=== PATIENT | male | born 1950 | race Caucasian/White ===

== ENCOUNTER 2017-08-09 13:08 | Observation (INO) | payer MEDICARE, OTHER, SELFPAY ==
[2017-08-09] MEDS: HYDROMORPHONE 0.5 MG INJ 1 MG IV (13:09)
--- NOTE | 2017-08-09 13:10 | ED.BACK ---
HPI - Back Pain/Injury General Chief Complaint: Back Pain/Injury Stated Complaint: Back pain Time Seen by Provider: 08/09/17 13:10 Source: patient, family and EMS Mode of arrival: EMS History of Present Illness HPI Narrative: 67-year-old male with history of AFib on Coumadin, hypertension, and hyperlipidemia presents with significant lumbar pain and inability to ambulate since Wednesday. He has been laying flat all weekend. He denies any significant injury and was ambulatory up until Wednesday afternoon. He denies any new numbness or tingling but admits to some persistent numbness in his left leg from prior episodes of sciatica. He denies any trouble with bowel or bladder control. He denies weakness in his legs and states that the pain is so excruciating he cannot stand up. He came to the emergency department by airlift from Bonita Maxwell MD Complaint: back pain Onset (ago): day(s) Duration: constant Similar Symptoms Previously: Yes Location: lumbar spine Severity: severe Quality: burning, sharp and stabbing Radiation: none Relieving factors: immobilization Exacerbating factors: sitting upright and walking Context: unknown Associated symptoms: denies other symptoms Related Data Home Medications Medication Instructions Recorded Confirmed losartan 50 mg PO DAILY 08/09/17 08/09/17 propranolol 40 mg PO BID 08/09/17 08/09/17 simvastatin 40 mg PO QPM 08/09/17 08/09/17 warfarin [Coumadin] 0.5 - 1 tab PO DAILY 08/09/17 08/09/17 Allergies Allergy/AdvReac Type Severity Reaction Status Date / Time No Known Drug Allergies Allergy Verified 08/09/17 13:28 Review of Systems Review of Systems All systems reviewed & are unremarkable except as noted in HPI and below Constitutional Denies chills, Denies fever(s), Denies lethargy and Denies weakness Eyes Denies change in vision, Denies eye discharge, Denies irritation and Denies loss of vision ENT Ears, Nose, Mouth, and Throat: Denies change in voice, Denies neck pain and Denies sore throat Cardiovascular Denies chest pain, Denies irregular heart rhythm, Denies lightheadedness, Denies palpitations, Denies dyspnea, Denies dyspnea on exertion and Denies orthopnea Respiratory Denies cough, Denies dyspnea, Denies dyspnea on exertion and Denies wheezing Gastrointestinal Gastrointestinal: Denies abdominal pain, Denies change in bowel habits, Denies diarrhea, Denies nausea and Denies vomiting Genitourinary Denies hematuria, Denies flank pain, Denies urinary incontinence and Denies urinary urgency Musculoskeletal Reports back pain and Denies neck pain Integumentary/Breasts Denies pruritus, Denies erythema, Denies rash and Denies wounds Neurologic Denies confusion, Denies loss of vision and Denies weakness Psychiatric Denies anxiety, Denies confusion, Denies depression, Denies homicidal ideation and Denies suicidal ideation Endocrine Denies palpitations Hematologic/Lymphatic Denies easy bruising Allergic/Immunologic Denies wheezing PFSH Medical History Atrial fibrillation (Acute) HTN (hypertension) (Acute) Hyperlipidemia (Acute) Social History Smoking Status: Former smoker Exam Narrative Exam Narrative: Pleasant 67-year-old male excruciating pain Initial Vital Signs Initial Vital Signs: Vital Signs Temperature 100.1 F H 08/09/17 13:18 Pulse Rate 73 08/09/17 13:18 Respiratory Rate 18 08/09/17 13:18 Blood Pressure 156/90 H 08/09/17 13:18 Pulse Oximetry 96 08/09/17 13:18 Const General: cooperative, well developed and acute distress Nutritional Appearance: well nourished Orientation: alert, awake, oriented x3 and not confused HENMT Head: normocephalic and atraumatic Ears: external ears normal and TM's normal bilaterally Nose: external nose normal and No nasal discharge Face and sinus: sinuses nontender, face symmetric, no sinus tenderness and No dry mucous membranes Mouth: oral mucosae normal and moist mucous membranes Teeth and gingiva: dentition normal Throat: tonsils normal and uvula midline Neck Neck: normal visual inspection, trachea midline, No lymphadenopathy, No midline deformity and No JVD Lymphatic: No lymphedema Chest Chest: normal inspection of the chest Cardio Rate: regular rate Rhythm: abnormal rhythm GI Inspection: non-distended Palpation: soft, no hepatosplenomegaly, No guarding, No pulsatile mass and No tender Auscultation: normal bowel sounds Back/Spine/Pelvis Back: back tenderness Cervical Spine: cervical ROM normal and No pain with cervical ROM Thoracic/Lumbar Spine: No surgical scar(s) present, thoraco-lumbar ROM limited, thoraco-lumbar spasm and lumbar spinal tenderness Skin General: no rashes or lesions noted, No jaundice and No petechiae Neuro General: alert, awake, oriented x3 and no focal motor deficits Speech: speech normal Motor: muscle tone normal throughout and strength 5/5 throughout Sensory Exam: no sensory deficits noted Extrem General: full ROM, no clubbing, cyanosis or edema, no pedal edema and no calf tenderness Course Orders Ordered: ED Orders 08/09/17 13:55 Basic Metabolic Panel Stat C-Reactive Protein Quant Stat Complete Blood Count AUTO DIFF Stat Erythrocyte Sedimentation Rate Stat Lactate (Lactic Acid) Stat Procalcitonin Stat Prothrombin Time INR Stat Troponin with CK Cardiac Panel Stat 08/09/17 14:04 Blood Culture Stat 08/09/17 14:37 MR lumbar spine wo/w con Stat Discontinued Medications Hydromorphone HCl (Dilaudid) 1 mg IV NOW ONE Stop: 08/09/17 13:29 Last Admin: 08/09/17 13:09 Dose: 1 mg Dexamethasone 20 mg/ Sodium (Chloride) 52 mls @ 208 mls/hr IV NOW ONE Stop: 08/09/17 18:38 Last Infusion: 08/09/17 19:35 Dose: 0 mls/hr Admin: 08/09/17 19:14 Dose: 208 mls/hr Lorazepam (Ativan) 1 mg IV NOW ONE Stop: 08/09/17 15:09 Last Admin: 08/09/17 15:15 Dose: 1 mg Consultations Consultation #1: Dr. Hawkins (ortho) has reviewed MRI and states that though patient is in significant pain that there are no imaging or exam findings which would indicate need for emergent surgery. Happy to be involved in consult should hospitalist wish Consultation #2: Dr. Daily happy to accept Vital Signs - 8 hr 08/09/17 13:18 08/09/17 19:30 Temperature 100.1 F H Pulse Rate 73 79 Respiratory Rate 18 Blood Pressure 156/90 H Blood Pressure [Right Arm] 153/91 H Pulse Oximetry 96 96 MDM - Back Pain/Injury Differential Diagnosis Differential diagnosis: Likely lumbar radiculopathy, sciatica, strain of lumbar region, renal colic, pyelonephritis, thoracic back pain, AAA and discitis Medical Records Attestation: I reviewed the patient's medical records. Lab Data Attestation: I reviewed the patient's lab results. Result diagrams: 08/09/17 13:55 08/09/17 13:55 Lab Results 08/09/17 08/09/17 08/09/17 Range/Units 13:55 13:55 13:55 WBC 8.4 (4.5-11.0) X10^3/uL RBC 5.01 (4.5-5.9) X10^6/uL Hgb 16.0 (13.5-17.5) g/dL Hct 46.2 (41-53) % MCV 92.2 (80-100) fL MCH 32.0 (26-34) PG MCHC 34.6 (30-36) % RDW 13.4 (11.6-14.8) % Plt Count 198 (150-400) X10^3/uL Neut % (Auto) 75.4 H (50-75) % Lymph % (Auto) 15.4 L (25-40) % [place] % (Auto) 8.0 (3-14) % Eos % (Auto) 0.5 L (2-4) % Baso % (Auto) 0.7 (0-2) % Neut # (Auto) 6300 H (3793-8665) /uL ESR 9 (0-15) MM/HR PT (10.1-12.7) SECONDS INR (0.9-1.3) Sodium 142 (137-145) mmol/L Potassium 4.0 (3.4-5.1) mmol/L Chloride 101 (98-107) mmol/L Carbon Dioxide 30 (22-32) mmol/L BUN 14 (9-20) mg/dL Creatinine 0.80 (0.66-1.25) mg/dL Estimated GFR > 60.0 (>60) mL/min BUN/Creatinine Ratio 17.5 (6-22) Glucose 100 (80-110) mg/dL Lactate (0.7-2.1) mmol/L Calcium 9.1 (8.4-10.2) mg/dL Total Creatine Kinase 109 (55-170) U/L CK-MB (CK-2) 1.16 (<2.37) ng/mL CK-MB (CK-2) Rel Index 1.1 L (1.5-5.0) % Troponin I < 0.012 (0.01-0.034) ng/mL C-Reactive Protein 0.8 (<1.0) mg/dL Procalcitonin < 0.05 (<0.5) ng/mL 08/09/17 08/09/17 Range/Units 13:55 13:55 WBC (4.5-11.0) X10^3/uL RBC (4.5-5.9) X10^6/uL Hgb (13.5-17.5) g/dL Hct (41-53) % MCV (80-100) fL MCH (26-34) PG MCHC (30-36) % RDW (11.6-14.8) % Plt Count (150-400) X10^3/uL Neut % (Auto) (50-75) % Lymph % (Auto) (25-40) % [place] % (Auto) (3-14) % Eos % (Auto) (2-4) % Baso % (Auto) (0-2) % Neut # (Auto) (2239-5546) /uL ESR (0-15) MM/HR PT 18.3 H (10.1-12.7) SECONDS INR 1.7 H (0.9-1.3) Sodium (137-145) mmol/L Potassium (3.4-5.1) mmol/L Chloride (98-107) mmol/L Carbon Dioxide (22-32) mmol/L BUN (9-20) mg/dL Creatinine (0.66-1.25) mg/dL Estimated GFR (>60) mL/min BUN/Creatinine Ratio (6-22) Glucose (80-110) mg/dL Lactate 0.8 (0.7-2.1) mmol/L Calcium (8.4-10.2) mg/dL Total Creatine Kinase (55-170) U/L CK-MB (CK-2) (<2.37) ng/mL CK-MB (CK-2) Rel Index (1.5-5.0) % Troponin I (0.01-0.034) ng/mL C-Reactive Protein (<1.0) mg/dL Procalcitonin (<0.5) ng/mL Imaging Data MRI - lumbar: Attestation: I personally reviewed and interpreted this imaging study as follows: Radiologist's impression: PROCEDURE: MR LUMBAR SPINE WO/W CON INDICATIONS: Severe low back pain with fever TECHNIQUE: Noncontrast sagittal T1 spin echo and T2 fast spin echo, sagittal STIR, axial T1 and T2 fast spin echo through the lumbar spine. In cases with scoliosis, additional coronal T2 fast spin echo may be performed. After the administration of contrast, sagittal and axial T1 spin echo with fat saturation through the lumbar spine. COMPARISON: None. FINDINGS: Image quality: Excellent. Alignment and curvature: There is normal bony alignment. There is straightening normal lumbar spine curvature. Marrow: Marrow is of normal overall signal. No acute vertebral body compression fractures. No suspicious marrow enhancement. Spinal cord: Conus medullaris terminates at the L1-2 disc level. Visualized spinal cord demonstrates normal signal, without suspicious enhancement. Paraspinous soft tissues: No paravertebral masses or abnormal enhancement. L1-L2: Normal appearance. L2-L3: Loss of disc signal and slight loss of disc height. Mild, diffuse disc bulge. Small central disc protrusion superimposed upon diffuse disc bulge. Mild bilateral facet hypertrophy. Moderate narrowing of the central canal secondary to disc disease and facet hypertrophy. No neural foraminal narrowing. L3-L4: Loss of disc signal. Mild, diffuse disc bulge. Mild bilateral facet hypertrophy. Mild narrowing of the central canal secondary to disc disease and facet hypertrophy. Mild bilateral neural foraminal narrowing secondary to disc and facet disease. Focal high intensity zone noted in the posterior annulus compatible with a fissure. L4-L5: Loss of disc signal. Mild, diffuse disc bulge. Small central disc protrusion superimposed on diffuse disc bulge. Moderate facet and moderate ligamentum flavum hypertrophy. Moderate to severe narrowing of the central canal secondary to disc disease and posterior element hypertrophy. Moderate bilateral neural foraminal narrowing. Focal high intensity zone noted in the posterior annulus compatible with a fissure. L5-S1: Loss of disc signal and height. Moderate, diffuse disc bulge. Left central disc protrusion superimposed on diffuse disc bulge. Mild bilateral facet hypertrophy. Disc protrusion abuts and displaces the traversing left S1 nerve root. Mild narrowing of the central canal secondary to disc disease and facet hypertrophy. Severe bilateral neural foraminal narrowing secondary to disc and facet disease with flattening deformity of the exiting L5 nerve roots bilaterally. Focal high intensity zone is noted in the annulus compatible with fissures. IMPRESSION: 1. Multilevel degenerative disc disease. 2. Multilevel facet arthropathy. 3. Moderate to severe L4-L5 central canal narrowing. Moderate L2-L3 central canal narrowing. Mild L3-L4 and L5-S1 central canal narrowing. 4. Severe bilateral L5-S1 neural foraminal narrowing. Moderate bilateral L4-L5 neural foraminal narrowing. Mild bilateral L3-L4 neural foraminal narrowing. 5. Left central L5-S1 disc protrusion abuts and displaces the traversing left S1 nerve root. Please correlate with clinical data. 6. Flattened deformity of the exiting L5 nerve roots bilaterally secondary to neural foraminal narrowing. Please correlate with clinical data. 7. No abnormal postcontrast enhancement. A. L3-L4, L4-L5 and L5-S1 disc annulus fissures. Dictated by: Zenobia Singh MD, PhD on 08/09/2017 at 16:07 Approved by: Zenobia Singh MD, PhD on 08/09/2017 at 16:15 [facility] Narrative Medical decision making narrative: Given significant pain and presence of low-grade fever an MRI with contrast ordered to rule out diskitis, and epidural abscess. No evidence of such surgical emergency noted, including cauda equina. There are multiple level spinal stenosis and some disc protrusion which surely contribute to the patient's significant pain. He cannot ambulate due to pain and will therefore be brought into the hospital. Steroids and pain meds as well as Ativan have been administered. Orthopedics will likely see patient as a consult but states there is no surgical emergency hence a call to hospitalist. Discharge Plan Departure Patient Disposition: Admitted as Observation Clinical Impression: Intractable low back pain, Spinal stenosis
[2017-08-09 13:18] VITALS: BP 156/90; PULSE 73; RESP 18; TEMP 37.8; O2SAT 96
[2017-08-09 14:26] LABS: Add Manual Diff / Slide Review NO; Basophils Percent Auto 0.7 % (0-2); Eosinophils Percent Auto 0.5 % (2-4); Hematocrit 46.2 % (41-53); Lymphocytes Percent Auto 15.4 % (25-40); Mean Corpuscular HGB Conc 34.6 % (30-36); Mean Corpuscular Volume 92.2 fL (80-100); Neutrophils Absolute Auto 6300 /uL (3000-5900); Neutrophils Percent Auto 75.4 % (50-75); Platelet Count 198 X10^3/uL (150-400); Red Blood Cell Count 5.01 X10^6/uL (4.5-5.9); Red Cell Distribution Width 13.4 % (11.6-14.8); White Blood Cell Count 8.4 X10^3/uL (4.5-11.0)
[2017-08-09 14:31] LABS: Lactate (Lactic Acid) 0.8 mmol/L (0.7-2.1)
[2017-08-09 14:35] LABS: BUN Creatinine Ratio 17.5 (6-22); Blood Urea Nitrogen 14 mg/dL (9-20); C-Reactive Protein Quant 0.8 mg/dL (<1.0); Calcium 9.1 mg/dL (8.4-10.2); Carbon Dioxide 30 mmol/L (22-32); Chloride 101 mmol/L (98-107); Creatine Kinase 109 U/L (55-170); Estimated Glomerular Filt Rate > 60.0 mL/min (>60); Glucose 100 mg/dL (80-110); HEMOLYSIS 16 (0-50); Sodium 142 mmol/L (137-145)
--- NOTE | 2017-08-09 14:37 | DI.MRI.S_ITS ---
PROCEDURE: MR LUMBAR SPINE WO/W CON INDICATIONS: Severe low back pain with fever TECHNIQUE: Noncontrast sagittal T1 spin echo and T2 fast spin echo, sagittal STIR, axial T1 and T2 fast spin echo through the lumbar spine. In cases with scoliosis, additional coronal T2 fast spin echo may be performed. After the administration of contrast, sagittal and axial T1 spin echo with fat saturation through the lumbar spine. COMPARISON: None. FINDINGS: Image quality: Excellent. Alignment and curvature: There is normal bony alignment. There is straightening normal lumbar spine curvature. Marrow: Marrow is of normal overall signal. No acute vertebral body compression fractures. No suspicious marrow enhancement. Spinal cord: Conus medullaris terminates at the L1-2 disc level. Visualized spinal cord demonstrates normal signal, without suspicious enhancement. Paraspinous soft tissues: No paravertebral masses or abnormal enhancement. L1-L2: Normal appearance. L2-L3: Loss of disc signal and slight loss of disc height. Mild, diffuse disc bulge. Small central disc protrusion superimposed upon diffuse disc bulge. Mild bilateral facet hypertrophy. Moderate narrowing of the central canal secondary to disc disease and facet hypertrophy. No neural foraminal narrowing. L3-L4: Loss of disc signal. Mild, diffuse disc bulge. Mild bilateral facet hypertrophy. Mild narrowing of the central canal secondary to disc disease and facet hypertrophy. Mild bilateral neural foraminal narrowing secondary to disc and facet disease. Focal high intensity zone noted in the posterior annulus compatible with a fissure. L4-L5: Loss of disc signal. Mild, diffuse disc bulge. Small central disc protrusion superimposed on diffuse disc bulge. Moderate facet and moderate ligamentum flavum hypertrophy. Moderate to severe narrowing of the central canal secondary to disc disease and posterior element hypertrophy. Moderate bilateral neural foraminal narrowing. Focal high intensity zone noted in the posterior annulus compatible with a fissure. L5-S1: Loss of disc signal and height. Moderate, diffuse disc bulge. Left central disc protrusion superimposed on diffuse disc bulge. Mild bilateral facet hypertrophy. Disc protrusion abuts and displaces the traversing left S1 nerve root. Mild narrowing of the central canal secondary to disc disease and facet hypertrophy. Severe bilateral neural foraminal narrowing secondary to disc and facet disease with flattening deformity of the exiting L5 nerve roots bilaterally. Focal high intensity zone is noted in the annulus compatible with fissures. IMPRESSION: 1. Multilevel degenerative disc disease. 2. Multilevel facet arthropathy. 3. Moderate to severe L4-L5 central canal narrowing. Moderate L2-L3 central canal narrowing. Mild L3-L4 and L5-S1 central canal narrowing. 4. Severe bilateral L5-S1 neural foraminal narrowing. Moderate bilateral L4-L5 neural foraminal narrowing. Mild bilateral L3-L4 neural foraminal narrowing. 5. Left central L5-S1 disc protrusion abuts and displaces the traversing left S1 nerve root. Please correlate with clinical data. 6. Flattened deformity of the exiting L5 nerve roots bilaterally secondary to neural foraminal narrowing. Please correlate with clinical data. 7. No abnormal postcontrast enhancement. A. L3-L4, L4-L5 and L5-S1 disc annulus fissures. Dictated by: Zenobia Singh MD, PhD on 08/09/2017 at 16:07 Approved by: Zenobia Singh MD, PhD on 08/09/2017 at 16:15
[2017-08-09 14:44] LABS: Troponin I < 0.012 ng/mL (0.01-0.034)
[2017-08-09 14:45] LABS: Erythrocyte Sedimentation Rate 9 MM/HR (0-15); INR 1.7 (0.9-1.3); Prothrombin Time 18.3 SECONDS (10.1-12.7)
[2017-08-09 14:47] LABS: CKMB % Relative Index 1.1 % (1.5-5.0); Creatine Kinase MB 1.16 ng/mL (<2.37)
[2017-08-09 14:50] LABS: Procalcitonin < 0.05 ng/mL (<0.5)
[2017-08-09] MEDS: LORazepam 2 MG/ML SYRINGE 1 MG IV (15:15)
[2017-08-09] MEDS: DEXAMETHASONE 20 MG in SODIUM CHLORIDE 0.9% 50 ML 208 ML IV (19:14)
[2017-08-09 19:30] VITALS: BP 153/91; PULSE 79; O2SAT 96
[2017-08-09 20:41] VITALS: BMI 33.6
[2017-08-09 21:07] VITALS: BP 141/101; PULSE 73; RESP 16; TEMP 36.6; O2SAT 92
--- NOTE | 2017-08-09 21:20 | P.HP_ITS ---
History of Present Illness Date Patient Seen: 08/09/17 Time Patient Seen: 20:45 Chief complaint: Intractable Low Back pain/ Spinal Stenosis Narrative: 67-year-old man, patient of Dr. Ernesto Bennett at [facility] in [place], who was vacationing on [place]. He started having acute exacerbation of low back pain about 4 days ago. He was walking and started having sudden onset of low back pain. He does not recall any particular event of injury. He tried to take Advil and rest. The back pain does not improve. He was not able to walk. He was airlifted from the [facility] Emergency Room earlier today. MRI of the lumbar spine showed spinal stenosis at the L4 through 5 level and neural foraminal stenosis at L5-S1. He was admitted for observation due to his inability to ambulate. Patient History Medical History Atrial fibrillation (Acute) HTN (hypertension) (Acute) Hyperlipidemia (Acute) Comment: Low back pain, last flare up was about 6 weeks ago. Family & Social History Social History: household members spouse Prior Living Arrangements House Safety & Behavioral: Feels Safe in Current Yes Environment Suicidal Ideation Description None Tobacco & Substance use: Smoking Status Former smoker alcohol intake current alcohol intake frequency a few times a month Substance Use Type marijuana Comment: He is . He and his are vacationing on [place]. He drinks about 2 alcoholic beverages a day. Denies cigarette smoking Meds Home Medications Medication Instructions Recorded Confirmed Type losartan 50 mg PO DAILY 08/09/17 08/09/17 History propranolol 40 mg PO BID 08/09/17 08/09/17 History simvastatin 40 mg PO QPM 08/09/17 08/09/17 History warfarin [Coumadin] 0.5 - 1 tab PO DAILY 08/09/17 08/09/17 History Allergies Allergy/AdvReac Type Severity Reaction Status Date / Time No Known Drug Allergies Allergy Verified 08/09/17 13:28 Review of Systems Constitutional Comments: Denies fever chills or sweats Cardiovascular Comments: No chest pain or shortness of breath Respiratory Comments: No coughing or wheezing Gastrointestinal Gastrointestinal: Reports constipation Comments: Denies abdominal pain Genitourinary Comments: No dysuria Musculoskeletal Musculoskeletal: Reports as per HPI Exam Vital Signs (past 8 hours): Vital Signs - 8 hr 3 08/09/17 13:18 08/09/17 19:30 Temperature 100.1 F H Pulse Rate 73 79 Respiratory Rate 18 Blood Pressure 156/90 H Blood Pressure [Right Arm] 153/91 H Pulse Oximetry 96 96 Pulse Oximetry 96 Oxygen Delivery Method Room Air Narrative Exam Narrative: GENERAL: Well-appearing, well-nourished and in no acute distress. HEENT: Head normocephalic, atraumatic. Eyes pupils equal round NECK: Supple, no JVD, CHEST: Breath sounds equal bilaterally, no wheezes rales or rhonchi. CARDIAC: Irregularly irregular rhythm, without murmurs, rubs or gallops. ABDOMEN: Soft, nontender. Normoactive bowel sounds all 4 quadrants. No guarding or rebound. EXTREMITIES: Normal range of motion, no clubbing or edema. NEUROLOGICAL: Alert and oriented; Normal muscle strength. SKIN: Warm, dry, no petechiae, no rashes or lesions. Objective Imaging MRI - lumbar: Radiologist's impression: 1. Multilevel degenerative disc disease. 2. Multilevel facet arthropathy. 3. Moderate to severe L4-L5 central canal narrowing. Moderate L2-L3 central canal narrowing. Mild L3-L4 and L5-S1 central canal narrowing. 4. Severe bilateral L5-S1 neural foraminal narrowing. Moderate bilateral L4-L5 neural foraminal narrowing. Mild bilateral L3-L4 neural foraminal narrowing. 5. Left central L5-S1 disc protrusion abuts and displaces the traversing left S1 nerve root. Please correlate with clinical data. 6. Flattened deformity of the exiting L5 nerve roots bilaterally secondary to neural foraminal narrowing. Please correlate with clinical data. 7. No abnormal postcontrast enhancement. A. L3-L4, L4-L5 and L5-S1 disc annulus fissures. Labs Result Diagrams: 08/09/17 13:55 08/09/17 13:55 Labs: Laboratory Results - last 24 hr 08/09/17 08/09/17 08/09/17 13:55 13:55 13:55 WBC 8.4 RBC 5.01 Hgb 16.0 Hct 46.2 MCV 92.2 MCH 32.0 MCHC 34.6 RDW 13.4 Plt Count 198 Neut % (Auto) 75.4 H Lymph % (Auto) 15.4 L [place] % (Auto) 8.0 Eos % (Auto) 0.5 L Baso % (Auto) 0.7 Neut # (Auto) 6300 H ESR 9 PT INR Sodium 142 Potassium 4.0 Chloride 101 Carbon Dioxide 30 BUN 14 Creatinine 0.80 Estimated GFR > 60.0 BUN/Creatinine Ratio 17.5 Glucose 100 Lactate Calcium 9.1 Total Creatine Kinase 109 CK-MB (CK-2) 1.16 CK-MB (CK-2) Rel Index 1.1 L Troponin I < 0.012 C-Reactive Protein 0.8 Procalcitonin < 0.05 08/09/17 08/09/17 13:55 13:55 WBC RBC Hgb Hct MCV MCH MCHC RDW Plt Count Neut % (Auto) Lymph % (Auto) [place] % (Auto) Eos % (Auto) Baso % (Auto) Neut # (Auto) ESR PT 18.3 H INR 1.7 H Sodium Potassium Chloride Carbon Dioxide BUN Creatinine Estimated GFR BUN/Creatinine Ratio Glucose Lactate 0.8 Calcium Total Creatine Kinase CK-MB (CK-2) CK-MB (CK-2) Rel Index Troponin I C-Reactive Protein Procalcitonin Assessment & Plan Plan: Assessment/Plan Narrative: 1. Acute exacerbation of chronic low back pain: MRI showed spinal stenosis at L4 through 5 level and neural foraminal stenosis at L5-S1. We will start gabapentin 300 mg at bedtime. Gradually titrate the dose up to 300 mg b.i.d. and t.i.d. if he tolerates. Start oral prednisone 40 mg once a day. Start PT/ OT evaluation and treatment. Orthopedics consultation if he has no improvement of his low back pain tomorrow. 2. Hypertension: Continue propranolol and losartan 3. Chronic atrial fibrillation: Continue propranolol for rate control. Continue Coumadin for anticoagulation. 4. Hyperlipidemia: Continue simvastatin 5. Code status: Full code. Code status was discussed with patient himself. Quality VTE Deep Vein Thrombosis/Pulmonary Embolism Present on Admission: Yes
[2017-08-09 21:40] VITALS: BP 148/81
--- NOTE | 2017-08-09 22:09 | PC.NURSE ---
Patient recevied from Er, states he took a misstep on wednesday and had sharp back pain. Hx of back problems- last time about 6 weeks ago. Says he is unable to walk due to this pain, had been staying in the loft bedroom on [address]- needed to be lowered down a ladder in a stretcher by the [facility]. Currently pain free as long as I lie still.
[2017-08-09] MEDS: PROPRANOLOL 40 MG TABLET PO (22:54)
[2017-08-09] MEDS: OXYCODONE/ACETAMINOPHEN 5/325 TABLET 2 TAB PO (22:54)
[2017-08-09] MEDS: GABAPENTIN 300 MG CAPSULE PO (22:54)
[2017-08-10] VITALS (7 sets, daily range): BP systolic 129–141; BP diastolic 79–84; PULSE 68–80; RESP 17–18; TEMP 36.5–36.9; O2SAT 93–96
[2017-08-10] MEDS: predniSONE 20 MG TABLET 40 MG PO (08:20)
[2017-08-10] MEDS: LOSARTAN 50 MG TABLET PO (08:20)
[2017-08-10] MEDS: PROPRANOLOL 40 MG TABLET PO (08:20)
--- NOTE | 2017-08-10 10:53 | CM.DANOTE ---
DCP Assessment Patient is a 67 year old male who was admitted OBS Status on 08/09/17 for Intractable back pain. Pt has MCR and REG for insurance and his PCP is in [place]. EMR was reviewed. Per MD, pt likely stable for d/c home today with follow up with outpt PT and PCP. Per PT, pt ambulated halls and safe for d/c back home. SW met bedside with pt and spouse and explained role and pt confirmed that they live in [place] part of the year and then live in their cabin on [place] in the summer and have only been here a few days. Pt is Independent with ADL's at baseline and drives and active. Pt states he feels he is back at baseline with ADL's but aware he needs close follow up for back pain and issues. Pt and spouse plan to return to [place] at d/c for all the follow up appointments and will not return to [place] until pt has his back issues under control. Pt and spouse do not anticipate any SW needs at d/c and are agreeable to d/c home to [place] today. RN working on getting pt's records faxed to his PCP and a copy of MRI for follow up. Plan: Patient likely to d/c back home to [place] today via spouse POV. No SW needs at this time. [facility] [place]
--- NOTE | 2017-08-10 10:56 | PT.IIE ---
Medical History (Last Reviewed 08/09/17 @ 21:33 by Brittney Daily MD) Atrial fibrillation (Acute) HTN (hypertension) (Acute) Hyperlipidemia (Acute) Physical Therapy Inpatient Evaluation/Re-Eval M1 PT/OT-IP Prior Functional Status Start: 08/10/17 10:46 Freq: NEEDED Status: Active Protocol: Document 08/10/17 10:46 AB (Rec: 08/10/17 10:56 AB [id number]) Medical Review Prior Functional Status Medical History Reviewed Yes Diet/Fluid Consistency Regular Mobility and Gait Pt stated that he is independent with all mobilities and ambulation without AD Activities of Daily Living and IADL's independent will all ADLs Social History Household Members spouse Living Arrangements House Number of Floors (Floors) One Floor Number of Stairs To Enter/Railing? no steps to enter Home Environment Standard Height Toilet Walk in Shower Built-In Shower Seat Home Equipment Hand Held Shower Employment Status Retired Additional Social History Comment pt lives at [place]. stays at [place] during summer. M2 PT-IP Current Condition Start: 08/10/17 10:46 Freq: NEEDED Status: Active Protocol: Document 08/10/17 10:46 AB (Rec: 08/10/17 10:56 AB [id number]) Physical Therapy Current Condition Current Condition Evaluation Date 08/10/17 Treatment Diagnosis intractable LBP; difficulty in walking Onset Date 08/09/17 Precautions Lumbar Precautions Log Roll No Twisting Limit Bending Lifting Restriction of 10 lbs M3 PT-IP Subjective Start: 08/10/17 10:46 Freq: NEEDED Status: Active Protocol: Document 08/10/17 10:46 AB (Rec: 08/10/17 10:56 AB [id number]) Subjective Physical Therapy Visit Type Type Initial Evaluation Visit Start Time 10:00 Visit Stop Time 10:30 Total Visit Minutes 30 Number of ORDNANCE ARTIFICER HELPER Visits 0 Physical Therapy Visit Comments Patient Comments pt agreeable to do therapy Therapy Pain Assessment Pain Present Pain Present Denied Pain M4 PT-IP Mobility and Gait Start: 08/10/17 10:46 Freq: NEEDED Status: Active Protocol: Document 08/10/17 10:46 AB (Rec: 08/10/17 10:56 AB [id number]) PT-Bed Mobility Assessment Rolling Type of Rolling Log Rolling Level of Assist Standby Assistance Supine to Sit Supine to Sit Standby Assistance Sit to Supine Sit to Supine Standby Assistance PT-Transfer Assessment Sit to and From Stand Sit to and from Stand Standby Assistance Comments Mobility Comments educated on log roll bed mobility. completed supine<> sit x 4 sets SBA and initial cues but was able to complete without after a few reps. Gait Assessment Gait Gait Assistance Required: Standby Assistance Distance (Feet) (feet) 40 Gait Deviations General Gait Pattern Antalgic Lateral Trunk Lean Factors Limiting Gait Function Factors Limiting Gait Function Decreased Activity Tolerance Decreased Strength Poor Balance Poor Safety Awareness Comments Gait Comments pt presents with antalgic gait with lateral trunk lean to L PT-Balance Assessment Sitting Balance and Reactions Static Sitting Balance Ability Good Dynamic Sitting Balance Ability Good Standing Balance and Reactions Static Standing Balance Ability Good Dynamic Standing Balance Ability Fair M5 PT-IP Objective Assessments Start: 08/10/17 10:46 Freq: NEEDED Status: Active Protocol: Document 08/10/17 10:46 AB (Rec: 08/10/17 10:56 AB [id number]) Orientation Orientation/Cognition Level of Alertness Alert Orientation Name Age Birthday Month Date Year Day of Week Place Situation Safety Awareness Understands Safety Issues M6 PT-IP Treatment Start: 08/10/17 10:46 Freq: NEEDED Status: Active Protocol: Document 08/10/17 10:46 AB (Rec: 08/10/17 10:56 AB [id number]) Physical Therapy Treatment Education Education Provided Precautions Safety Other Treatments Other Treatment Performed educated pt with back precautions, positioning, proper posture and awareness M7 PT-IP Assessment and Plan Start: 08/10/17 10:46 Freq: NEEDED Status: Active Protocol: Document 08/10/17 10:46 AB (Rec: 08/10/17 10:56 AB [id number]) PT Summary Assessment and Plan Potential Rehabilitation Potential Good Status of Condition at Evaluation Stable Summary Impairments Strength Balance Bed Mobility Transfers Gait Activity Tolerance Assessment Summary pt requiring SBA with mobility and plans to go home today. pt will require outpt PT. Goals Bed Mobility Goal Independent Transfer Goal Independent Gait Goal Independent Gait Distance 200 Days to Meet Goals 2 Frequency of Treatment Frequency Of Treatment Once a Day Treatment Plan Physical Therapy Treatment Plan Bed Mobility Training Transfer Training Gait Training Therapeutic Exercise Balance Retraining Discharge Planning Hot or Cold Pack Manual Therapy Other Recommendations and Next Treatment ambulation Focus Recommendations To Nursing Amount of Assist Needed Standby Assistance Discharge Recommendations PT Discharge Recommendations Home Outpatient PT Provider Visit Care Team Role Provider Type Raul [place], DO Emergency Provider Physician Specialty: Emergency Medicine Brittney Daily MD Admit Provider Physician Attending Provider Specialty: Internal Medicine
--- NOTE | 2017-08-10 11:45 | PM.DS.1 ---
History of Present Illness Chief complaint: Intractable Low Back pain/ Spinal Stenosis Narrative: 67-year-old man, patient of Dr. Ernesto Bennett at [facility] in [place], who was vacationing on [place]. He started having acute exacerbation of low back pain about 4 days ago. He was walking and started having sudden onset of low back pain. He does not recall any particular event of injury. He tried to take Advil and rest. The back pain does not improve. He was not able to walk. He was air[facility]ed from [facility] Emergency Room earlier today. MRI of the lumbar spine showed spinal stenosis at the L4 through 5 level and neural foraminal stenosis at L5-S1. He was admitted for observation due to his inability to ambulate. Discharge Providers Date of admission: 08/09/17 20:02 Primary care physician: Dr. Ernesto Bennett-- [facility] in [place]. Consults: 08/09/17 21:44 Consult to Physical Therapy Evaluate & Treat Comment: low back pain Physician Instructions: Evaluate and Treat Discharge provider: Brittney Daily MD Discharge Date: 08/10/17 Summary Discharge Diagnosis: Acute exacerbation of chronic low back pain Hospital Course: Patient presented with severe low back pain. He was not able to ambulate even with assistance. He was treated with IV Decadron. He was also started on oral gabapentin an prednisone. He has significant improvement of his symptoms overnight. Currently he is able to ambulate with physical therapy. He is going to be discharged on a short course of oral prednisone and oral gabapentin. He will follow up with his primary care provider. I have recommended outpatient physical therapy. He is also interested in being seen and neurosurgeon to explore possible surgical interventions. Status at Discharge Cognitive/behavioral status at discharge: Alert and oriented x3. Functional status at discharge: independent ambulation Overall status at discharge: patient is progressing back to baseline Time Spent with Patient Greater than 30 minutes Exam Vital Signs (past 8 hours): Vital Signs - 8 hr 08/10/17 04:10 08/10/17 04:43 08/10/17 05:44 Temperature 97.7 F 97.7 F Pulse Rate 70 68 Respiratory Rate 17 17 Blood Pressure 131/84 H Pulse Oximetry 96 95 95 08/10/17 07:37 08/10/17 08:00 Temperature 98.4 F Pulse Rate 80 Respiratory Rate 18 Blood Pressure 141/83 H Pulse Oximetry 93 95 Pulse Oximetry 95 Oxygen Delivery Method Room Air Oxygen Flow Rate 0 Objective Imaging MRI - lumbar: Radiologist's impression: 1. Multilevel degenerative disc disease. 2. Multilevel facet arthropathy. 3. Moderate to severe L4-L5 central canal narrowing. Moderate L2-L3 central canal narrowing. Mild L3-L4 and L5-S1 central canal narrowing. 4. Severe bilateral L5-S1 neural foraminal narrowing. Moderate bilateral L4-L5 neural foraminal narrowing. Mild bilateral L3-L4 neural foraminal narrowing. 5. Left central L5-S1 disc protrusion abuts and displaces the traversing left S1 nerve root. Please correlate with clinical data. 6. Flattened deformity of the exiting L5 nerve roots bilaterally secondary to neural foraminal narrowing. Please correlate with clinical data. 7. No abnormal postcontrast enhancement. A. L3-L4, L4-L5 and L5-S1 disc annulus fissures. Labs Result Diagrams: 08/09/17 13:55 08/09/17 13:55 Labs: Laboratory Results - last 24 hr 08/09/17 08/09/17 08/09/17 13:55 13:55 13:55 WBC 8.4 RBC 5.01 Hgb 16.0 Hct 46.2 MCV 92.2 MCH 32.0 MCHC 34.6 RDW 13.4 Plt Count 198 Neut % (Auto) 75.4 H Lymph % (Auto) 15.[address] [facility] % (Auto) 8.0 Eos % (Auto) 0.5 L Baso % (Auto) 0.7 Neut # (Auto) 6300 H ESR 9 PT INR Sodium 142 Potassium 4.0 Chloride 101 Carbon Dioxide 30 BUN 14 Creatinine 0.80 Estimated GFR > 60.0 BUN/Creatinine Ratio 17.5 Glucose 100 Lactate Calcium 9.1 Total Creatine Kinase 109 CK-MB (CK-2) 1.16 CK-MB (CK-2) Rel Index 1.1 L Troponin I < 0.012 C-Reactive Protein 0.8 Procalcitonin < 0.05 08/09/17 08/09/17 13:55 13:55 WBC RBC Hgb Hct MCV MCH MCHC RDW Plt Count Neut % (Auto) Lymph % (Auto) [facility] % (Auto) Eos % (Auto) Baso % (Auto) Neut # (Auto) ESR PT 18.3 H INR 1.7 H Sodium Potassium Chloride Carbon Dioxide BUN Creatinine Estimated GFR BUN/Creatinine Ratio Glucose Lactate 0.8 Calcium Total Creatine Kinase CK-MB (CK-2) CK-MB (CK-2) Rel Index Troponin I C-Reactive Protein Procalcitonin Discharge Plan Discharge Plan Discharge Problem: Intractable low back pain, Spinal stenosis Patient Disposition: Home, Self-Care Provider Discharge Instructions Diet: Diet as Tolerated Activity: As tolerated Discharge Data Attending Provider: Brittney Daily Admit Date/Time: 08/09/17 20:02 Quality VTE Deep Vein Thrombosis/Pulmonary Embolism Present on Admission: Yes
--- NOTE | 2017-08-10 12:57 | PC.NURSE ---
Pt d/c'd to home per MD orders. and pt at bedside for d/c teaching. Provided packet, Rxs, and written/verbal education regarding disease process, s/s of acute distress, when to seek emergency medical treatment, medication regimen, f/u instruction. Pt is leaving for appt today with neurosurgeon in [place] at 1500. Medications are filled at [facility]. Pt and left at 1240 escorted to pharmacy and then POV in no acute distress. All belongings gathered and sent with.
== END 2017-08-10 12:40 | disposition home or self-care (01) ==
LOC: ED 19:36 → ICU 20:04
PROVIDERS: Admitting Provider Internal Medicine; Emergency Provider Emergency Medicine; Visit Provider Internal Medicine
DX: M51.36 Other intervertebral disc degeneration, lumbar region (principal); I48.91 Unspecified atrial fibrillation; Z79.01 Long term (current) use of anticoagulants; I10 Essential (primary) hypertension; Z87.891 Personal history of nicotine dependence; M48.061 Spinal stenosis, lumbar region without neurogenic claudication; E78.5 Hyperlipidemia, unspecified
CPT/HCPCS: 36415; 72158; 80048; 82550; 82553; 83605; 84145; 84484; 85025; 85610; 85651; 86140; 87040; 96374; 96375; 97161; 99283; 99284; G0378; A9579; J1100; J1170; J2060

== ENCOUNTER 2020-11-06 14:24 | Emergency (ER) | payer MEDICARE, OTHER, SELFPAY ==
[2020-11-06 14:25] VITALS: BP 118/75; PULSE 65; RESP 18; TEMP 36.3; O2SAT 98; BMI 33.0
[2020-11-06 14:28] VITALS: PULSE 57; O2SAT 99
[2020-11-06 14:29] VITALS: O2SAT 99
[2020-11-06 14:33] VITALS: BP 118/75
--- NOTE | 2020-11-06 14:36 | DI.RAD.S_ITS ---
PROCEDURE: XR RIBS RT MIN 3V W CXR 1V INDICATIONS: fall, right sided rib pain TECHNIQUE: 2 views of the right ribs were acquired, along with a single view chest. COMPARISON: None. FINDINGS: Surgical changes and devices: None. Bones and chest wall: Mildly displaced right 9th and 10th rib fractures are noted. Possible nondisplaced right 11th rib fracture. No suspicious bony lesions. Overlying soft tissues appear unremarkable. Lungs and pleura: Bibasilar infiltrate or atelectasis. No pleural effusions or pneumothorax. Lungs appear clear. Mediastinum: Mediastinal contours appear normal. Heart size is normal. IMPRESSION: 1. Right rib fractures involving the 9th, 10th, and possibly 11th ribs. 2. Bibasilar infiltrate or atelectasis. Dictated by: Cortney Kerns M.D. on 11/06/2020 at 15:01 Approved by: Cortney Kerns M.D. on 11/06/2020 at 15:04
[2020-11-06] MEDS: hydrOXYzine pamoate 25 MG CAPSULE PO (14:41)
[2020-11-06] MEDS: OXYCODONE/ACETAMINOPHEN 5/325 TABLET 1 TAB PO ×2 (14:41→15:52)
--- NOTE | 2020-11-06 15:12 | ED.BACK ---
HPI - Back Pain/Injury General Chief Complaint: Back Pain/Injury Stated Complaint: Rib Pain Time Seen by Provider: 11/06/20 14:35 Source: patient Limitations: no limitations History of Present Illness HPI Narrative: 70-year-old gentleman with a history of atrial fibrillation for which he is on Eliquis, has a history of spinal surgery, hyperlipidemia and hypertension who was fishing today and in the excitement of trying to get his real with a fish on he stumbled and fell landing on his right side/lower ribs. Experienced acute rib pain with muscle spasm but is not short of breath, no obvious bleeding or contusion at this point he was able to get up off the ground by himself is not complaining of spinal pain abdominal pain pelvis or lower extremity pain. Related Data Home Medications Medication Instructions Recorded Confirmed losartan 50 mg tablet 50 mg PO DAILY 08/09/17 08/09/17 propranolol 40 mg tablet 40 mg PO BID 08/09/17 08/09/17 simvastatin 40 mg tablet 40 mg PO QPM 08/09/17 08/09/17 warfarin 2.5 mg tablet (Coumadin) 0.5 - 1 tab PO DAILY 08/09/17 08/09/17 Previous Rx's Medication Instructions Recorded hydroxyzine HCl 25 mg tablet 25 mg PO QID PRN #20 tab 11/06/20 hydroxyzine HCl 25 mg tablet 25 mg PO QID PRN #20 tab 11/06/20 hydroxyzine pamoate 25 mg capsule 25 mg PO QID PRN #20 cap 11/06/20 (Vistaril) hydroxyzine pamoate 25 mg capsule 25 mg PO QID PRN #20 cap 11/06/20 (Vistaril) oxycodone-acetaminophen 5 mg-325 1 - 2 tab PO Q6H PRN #30 tab 11/06/20 mg tablet oxycodone-acetaminophen 5 mg-325 1 tab PO Q6H PRN #20 tab 11/06/20 mg tablet polyethylene glycol 3350 17 17 g PO DAILY #238 g 11/06/20 gram/dose oral powder polyethylene glycol 3350 17 17 g PO DAILY #238 g 11/06/20 gram/dose oral powder Allergies Allergy/AdvReac Type Severity Reaction Status Date / Time No Known Drug Allergies Allergy Verified 08/09/17 13:28 Review of Systems Review of Systems Narrative: Pertinent positive and negative findings as per HPI Remainder of review of systems is otherwise unremarkable for Constitutional: Fevers, chills, weakness ENT: No sore throat, neck pain, ear pain CV: palpitations, Respiratory: Cough, wheeze, dyspnea GI: Nausea, vomiting, diarrhea, : Dysuria, hematuria, Patient History Medical History (Updated 11/06/20 @ 15:25 by Blanca Alvarez MD) Atrial fibrillation HTN (hypertension) Hyperlipidemia Social History household members: spouse Smoking Status: Former smoker alcohol intake: current Smoking Status: Former smoker alcohol intake frequency: 0-2 drinks per day Substance Use Type: marijuana Exam Narrative Exam Narrative: General: Healthy appearing, in moderate pain with any movement that disrupts the right lower ribs. Able to give a complete and coherent history. Well-nourished well-developed HEENT: Moist mucous membranes, normal sclera with reactive pupils, Neck: supple, no midline cervical spine tenderness Respiratory: Lungs are clear to auscultation, with splinting in the right base. Very tender posterior right ribs to palpation without obvious hematoma abrasion or contusion. Cardiac: Regular rate and rhythm no murmurs no bruits Chest: No subcutaneous air, no abrasions or contusions. Spine: No tenderness along thoracic spine or lumbar spine. Abdomen: Soft, nontender, good bowel tones, no flank pain Skin: Warm and dry, no rashes Neurologic: Grossly neurologically intact with no obvious asymmetries or abnormalities Extremities: No trauma, well perfused Psych: Cooperative, appropriate insight and affect Initial Vital Signs Initial Vital Signs: Vital Signs Temperature 97.4 F L 11/06/20 14:25 Pulse Rate 65 11/06/20 14:25 Respiratory Rate 18 11/06/20 14:25 Blood Pressure 118/75 11/06/20 14:25 Pulse Oximetry 98 11/06/20 14:25 Course Orders Ordered: ED Orders 11/06/20 14:36 XR ribs RT min 3V w CXR1V Stat Discontinued Medications Hydroxyzine Pamoate (Hydroxyzine Pamoate 25 Mg Capsule) 25 mg PO NOW ONE Stop: 11/06/20 14:37 Last Admin: 11/06/20 14:41 Dose: 25 mg Documented by: YOJANA Oxycodone/Acetaminophen (Oxycodone/Acetaminophen 5/325 Tablet) 1 tab PO NOW ONE Stop: 11/06/20 14:37 Last Admin: 11/06/20 14:41 Dose: 1 tab Documented by: YOJANA Vital Signs Vital signs: Vital Signs - 8 hr 11/06/20 14:25 11/06/20 14:28 11/06/20 14:29 Temperature 97.4 F L Pulse Rate 65 57 L Respiratory Rate 18 Blood Pressure 118/75 Pulse Oximetry 98 99 99 11/06/20 14:33 Temperature Pulse Rate Respiratory Rate Blood Pressure 118/75 Pulse Oximetry MDM - Back Pain/Injury Imaging Data X-ray ribs: Radiologist's Impression: FINDINGS: Surgical changes and devices: None. Bones and chest wall: Mildly displaced right 9th and 10th rib fractures are noted. Possible nondisplaced right 11th rib fracture. No suspicious bony lesions. Overlying soft tissues appear unremarkable. Lungs and pleura: Bibasilar infiltrate or atelectasis. No pleural effusions or pneumothorax. Lungs appear clear. Mediastinum: Mediastinal contours appear normal. Heart size is normal. IMPRESSION: 1. Right rib fractures involving the 9th, 10th, and possibly 11th ribs. 2. Bibasilar infiltrate or atelectasis. Dictated by: Cortney Kerns M.D. on 11/06/2020 at 15:01 [facility] Narrative Medical decision making narrative: 70-year-old gentleman who stumbled on his boat and broke ribs 11/08/2010 on the right side posteriorly and did not catch the fish that he had hooked. No other trauma, no pneumothorax no head or neck injuries no spinal injuries no pelvis or lower extremity injuries. He was given a single Percocet and 25 mg of hydroxyzine for the muscle spasm and this seems to have been an effective combination for him. He did require narcotics after spinal surgery a couple of years ago and is familiar with the constipation side effects and how to manage this. He and his have a 2nd home on [place] ferry access[place] Given his age, his anticoagulation, the severity of pain I have suggested that he spent a night in [facility] in case there are other findings that developed over the course of the evening. Because he is anticoagulated we will need to depend mostly on Tylenol and narcotics for pain control. Will also make sure he has Vistaril available to him to help with muscle spasm. He is given incentive spirometer and instructed in its use and the reasons for its use. He is safe for home discharge Discharge Plan Departure Patient Disposition: Home Clinical Impression: Multiple fractures of ribs Qualifiers: Encounter type: initial encounter Fracture type: closed Laterality: right Qualified Code(s): S22.41XA - Multiple fractures of ribs, right side, initial encounter for closed fracture Instructions: DI for Rib Fracture Activity Restrictions/Additional Instructions: Thank you for coming in today You did break 3 lower ribs on the right side. Fortunately there does not appear to be any internal bleeding, there is no collapsed lung, no spinal injuries and no pelvic injuries. With your anticoagulation, ibuprofen is not going to be an option for pain control. For medium pain control you can use Tylenol and for severe pain control you can use 1-2 Percocet. This is Tylenol plus oxycodone. Oxycodone is a narcotic and will be constipating. Please make sure that you use MiraLax any day that you take an oxycodone. For the muscle spasm you can use Vistaril to every 6 hours. It is safe to combined Vistaril and Percocet. You have been given an incentive spirometer to make sure that you are forcing yourself to take big breaths and keep your lung fully inflated -thus avoiding complications like pneumonia. I would encourage you to stay in town this evening and if you have worsening symptoms or new symptoms developing, please return to the ER for further evaluation Prescriptions: New oxycodone-acetaminophen 5-325 mg tablet 1 tab PO Q6H PRN (Reason: pain) Qty: 20 RF: 0 hydroxyzine pamoate [Vistaril] 25 mg capsule 25 mg PO QID PRN (Reason: muscle spasm) Qty: 20 RF: 0 polyethylene glycol 3350 17 gram/dose powder 17 g PO DAILY Qty: 238 RF: 1 oxycodone-acetaminophen 5-325 mg tablet 1 - 2 tab PO Q6H PRN (Reason: pain) Qty: 30 RF: 0 hydroxyzine HCl 25 mg tablet 25 mg PO QID PRN (Reason: muscle spasm) Qty: 20 RF: 0 polyethylene glycol 3350 17 gram/dose powder 17 g PO DAILY Qty: 238 RF: 1 hydroxyzine HCl 25 mg tablet 25 mg PO QID PRN (Reason: muscle spasm) Qty: 20 RF: 0 hydroxyzine pamoate [Vistaril] 25 mg capsule 25 mg PO QID PRN (Reason: muscle spasm) Qty: 20 RF: 0 No Action losartan 50 mg Tablet 50 mg PO DAILY RF: 0 warfarin [Coumadin] 2.5 mg Tablet 0.5 - 1 tab PO DAILY RF: 0 simvastatin 40 mg Tablet 40 mg PO QPM RF: 0 propranolol 40 mg Tablet 40 mg PO BID RF: 0
--- NOTE | 2020-11-06 15:16 | PC.NURSE ---
Incentive Spirometer training in progress with RT.
== END 2020-11-06 15:47 | disposition home or self-care (01) ==
PROVIDERS: Emergency Provider Emergency Medicine
DX: S22.41XA Multiple fractures of ribs, right side, initial encounter for closed fracture (principal); W19.XXXA Unspecified fall, initial encounter
CPT/HCPCS: 71101; 99283